=== PATIENT | female | born 1995 | race Caucasian/White ===

== ENCOUNTER 2019-03-02 18:05 | Emergency (ER) | payer OTHER ==
[~2019-03-02] VITALS: Ht 154.9 cm; Wt 45.5 kg
[2019-03-02 18:09] VITALS: Ht 154.9 cm; Wt 45.5 kg
[2019-03-03] MEDS ORDERED: SERTRALINE 50 MG TAB PO SCH (09:00)
[2019-03-03 09:03] VITALS: BP 129/75; PULSE 65; RESP 18
== END 2019-03-03 09:23 ==
LOC: E/R 18:05
DX: F10.920 Alcohol use, unspecified with intoxication, uncomplicated (principal)
CPT/HCPCS: 36415; 80053; 80307; 84703; 85025; 99285